=== PATIENT | female | born 1940 | race Two or more races ===

== ENCOUNTER 2016-03-25 21:05 | Emergency (ER) | payer MEDICARE, BC ==
[~2016-03-25] VITALS: Ht 165.1 cm; Wt 72.6 kg
[2016-03-25 21:26] VITALS: BP 226/86
--- NOTE | 2016-03-25 21:42 | Emergency Room Report ---
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 Unsure if she was rubbing her nose, but turned heat on in house today because it was cold. Bleeding has stopped. Denies abnormal bleeding or being on Coumadin/Warfarin. Denies trauma to head. C/o sharp stabbing pain to left side of head that preceeded bleed. Also happened yesterday but without the epistaxis. BP noted to be high here, SBP>200. States compliance with all HTN meds today including clonidine. Otherwise denies chest pain, SOB, abd pain , fever/chills. Denies blood in back of throat, coughing up blood, vomiting blood. Allergies: Coded Allergies: No Known Allergies (Unverified , 03/25/16) Patient History Past Medical History: HTN, CVA/TIA Past Surgical History: none Pertinent Family History: none Social History: Denies: alcohol use, drug use, smoking Now: No Immunizations: UTD Reviewed Nursing Documentation: PMH: Agreed, PSxH: Agreed Nursing Documentation-PMH Past Medical History: No History, Except For Hx Hypertension: Yes Hx Diabetes: Yes Review of Systems All Other Systems: negative except mentioned in HPI Physical Exam Vital Signs Date Time Temp Pulse Resp B/P Pulse Ox O2 Delivery O2 Flow Rate FiO2 03/25/16 21:13 98.1 86 15 211/95 97 Room Air Sp02 EP Interpretation: reviewed, abnormal General Appearance: normal inspection, well appearing, no apparent distress, alert, GCS 15, non-toxic Head: normocephalic, atraumatic Eyes: bilateral eye PERRL, bilateral eye other ENT: normal ENT inspection, hearing grossly normal, normal pharynx, no angioedema, normal voice, TMs + canals normal, uvula midline, other - Left nare : dried blood in nare. No active hemorrhage at keisselbach plexus. No blood in posterior oropharynx Neck: normal inspection, full range of motion, supple, no bony tend Respiratory: normal inspection, lungs clear, normal breath sounds, no respiratory distress, no retraction, no wheezing Cardiovascular #1: regular rate, rhythm, no edema Gastrointestinal: normal inspection, normal bowel sounds, non tender, soft, no guarding, no hernia Genitourinary: no CVA tenderness Musculoskeletal: normal inspection, back normal, normal range of motion, Cole' s Sign negative Neurologic: normal inspection, alert, oriented x3, responsive, visitor services information assistant III-XII nml as tested, motor strength/tone normal, speech normal Psychiatric: normal inspection, judgement/insight normal, mood/affect normal Skin: normal inspection, normal color, no rash Lymphatic: normal inspection Medical Decision Making Medicare Attestation I Joanna Jimenez MD hereby attest that the medical record entry for date of service, 02/06/16 accurately reflects signatures/notations that I made in my capacity as MD when I treated/diagnosed the above listed Medicare beneficiary. I attest that this information is true, accurate and complete to the best of my knowledge. I understand that any falsification, omission, or concealment of material fact may subject me to administrative, civil, or criminal liability. This patient warrants hospital admission for extreme of age and has a condition that cannot be treated as outpatient. Diagnostic Impression: Primary Impression: Epistaxis Additional Impressions: Headache Qualified Codes: G44.209 - Tension-type headache, unspecified, not intractable HTN (hypertension) Qualified Codes: I10 - Essential (primary) hypertension ER Course 75 YO F with left sided epistaxis, now resolved, associated with sharp headache. SBP>200. PLAN Check basic labs, Coags, CT head, Clonidine PO, reassess Rhythm Strip Diag. Results EP Interpretation: yes Rate: 64 Rhythm: NSR, no PVC's, no ectopy Reevaluation Time: 23:09 Last Vital Signs Date Time Temp Pulse Resp B/P Pulse Ox O2 Delivery O2 Flow Rate FiO2 03/25/16 21:13 98.1 86 15 211/95 97 Room Air Status: improved Reevaluation Impression CT head: No acute process Labs: No leuks. H&H stable. Coags normal Observed for some time with no recurrence of epistaxis BP 147/90 on DC after additional clonidine Patient asymptomatic Patient has PMD/Neuro followup scheduled this week DC home with daughter Advised to apply pressure/ice if recurrent bleed Return to ER if uncontrolled Disposition: HOME, SELF-CARE JOANNA JIMENEZ M.D. Mar 25, 2016 21:42
[2016-03-25] MEDS ORDERED: cloNIDine 0.2mg Tab ORAL ONE (21:45)
[2016-03-25 22:26] VITALS: BP 226/86
[2016-03-25 22:28] VITALS: BP 157/68
[2016-03-25 22:40] LABS: BASOPHILS % (AUTO) 2.3 % (0.0-2.0); EOSINOPHILS % (AUTO) 2.4 % (0.0-3.0); LYMPHOCYTES % (AUTO) 36.8 % (20.0-45.0); MEAN CORPUSCULAR HEMOGLOBIN 29.8 PG (27.0-31.0); MEAN CORPUSCULAR HGB CONC 32.7 G/DL (32.0-36.0); MEAN CORPUSCULAR VOLUME 91 FL (80-99); MEAN PLATELET VOLUME 6.3 FL (6.5-10.1); MONOCYTES % (AUTO) 8.1 % (1.0-10.0); NEUTROPHILS % (AUTO) 50.4 % (45.0-75.0); PLATELET COUNT 301 K/UL (150-450); RED BLOOD COUNT 4.09 M/UL (4.20-5.40); RED CELL DISTRIBUTION WIDTH 12.8 % (11.6-14.8); WHITE BLOOD COUNT 9.2 K/UL (4.8-10.8)
[2016-03-25 22:44] LABS: PROTHROMBIN TIME 10.6 SEC (9.30-11.50)
[2016-03-25 22:51] LABS: ALANINE AMINOTRANSFERASE 16 U/L (3-33); ALBUMIN/GLOBULIN RATIO 1.3 (1.0-2.7); ANION GAP 16 (5-15); ASPARTATE AMINO TRANSFERASE 17 U/L (5-40); CARBON DIOXIDE 24 mEQ/L (20-30); CHLORIDE 93 mEQ/L (98-107); CREATININE 1.2 mg/dL (0.5-0.9); HEMOLYSIS 17; POTASSIUM 4.9 mEQ/L (3.4-4.9); SODIUM 133 mEQ/L (135-145); TOTAL PROTEIN 7.6 g/dL (6.6-8.7)
[2016-03-25 23:29] VITALS: BP 147/70
[2016-03-25 23:30] VITALS: BP 147/70
--- NOTE | 2016-03-26 09:11 | Diagnostic Imaging Report ---
Indication: Headache Technique: Contiguous 5 mm thick transaxial imaging of the head obtained in a Siemens Sensation [address] scanner. Soft tissue and bone windows generated. Total Dose length Product (DLP): [address] Dose Index Volume (CTDIvol): 70.38 mGy Comparison: none Findings: There is mild prominence of the ventricles, basal cisterns, and cerebral sulci consistent with atrophy. Mild, nonspecific, white matter hypoattenuation is noted throughout the brain consistent with chronic small vessel disease. There is no midline shift, edema, acute hemorrhage, mass effect, or abnormal extra-axial fluid collections. Bones and extra osseous soft tissues are unremarkable. Impression: No acute intracranial bleed, mass effect or edema. Mild atrophy of the brain. Nonspecific white matter hypoattenuation probably due to chronic small vessel disease. The CT scanner at [facility] is accredited by the [employer] and the scans are performed using protocols designed to limit radiation exposure to as low as reasonably achievable to attain images of sufficient resolution adequate for diagnostic evaluation.
--- NOTE | 2016-03-26 18:52 | Cardiology Report ---
APPROVED REPORT EKG Measurement Heart [id number] MN [id number] Normal sinus rhythm with sinus arrhythmia Left axis deviation Abnormal ECG
== END 2016-03-25 23:30 | disposition home or self-care (01) ==
LOC: EMR 21:35
DX: R04.0 Epistaxis (principal); I10 Essential (primary) hypertension; G44.209 Tension-type headache, unspecified, not intractable; E11.9 Type 2 diabetes mellitus without complications; Z86.73 Personal history of transient ischemic attack (TIA), and cerebral infarction without residual deficits; Z79.02 Long term (current) use of antithrombotics/antiplatelets; Z79.82 Long term (current) use of aspirin
CPT/HCPCS: 36415; 70450; 80053; 85025; 85610; 85730; 86900; 86901; 93005; 99284